=== PATIENT | female | born 2000 | race Caucasian/White ===

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

== ENCOUNTER 2019-08-19 16:26 | Emergency (ER) | payer SELFPAY | END 2019-08-19 17:53 | disposition home or self-care (01) | LOC: ERS 16:26 | DX: O99.511 Diseases of the respiratory system complicating pregnancy, first trimester (principal); J06.9 Acute upper respiratory infection, unspecified; Z3A.01 Less than 8 weeks gestation of pregnancy | CPT/HCPCS: 87804; 99283 ==

== ENCOUNTER 2019-08-20 08:03 | Emergency (ER) | payer SELFPAY | END 2019-08-20 08:24 | disposition home or self-care (01) | LOC: ERS 08:03 | DX: H66.91 Otitis media, unspecified, right ear (principal) | CPT/HCPCS: 99282 ==

== ENCOUNTER 2020-04-07 08:28 | Outpatient (CLI) | payer OTHER ==
[2020-04-07 17:22] LABS: SARS-CoV-2 MS2 Positive; SARS-CoV-2 N Gene Negative; SARS-CoV-2 S Gene Negative; SARS-CoV-2 by NAA Not Detected (NotDetected); SARS-CoV-2 orf1ab Negative
== END 2020-04-07 08:29 | disposition home or self-care (01) ==
LOC: LABBT 08:28
PROVIDERS: ATTEND Family Medicine
DX: Z20.828 Contact with and (suspected) exposure to other viral communicable diseases (principal)
CPT/HCPCS: 87635; U0003

== ENCOUNTER 2020-04-10 05:30 | Inpatient (IN) | payer MEDICAID, OTHER ==
[2020-04-10 07:18] VITALS: BMI 29.1
[2020-04-10] MEDS ORDERED: HYDROcodone/Acetaminophen 5/325 mg Tablet PO PRN ×2 (07:18→21:18)
[2020-04-10] MEDS ORDERED: Penicillin G Potassium 5 MILL.UNITS in Sodium Chloride 0.9% 100 ML IVPB SCH (07:18)
[2020-04-10] MEDS ORDERED: Diphenoxylate HCl/Atropine Tablet PO PRN (07:18)
[2020-04-10] MEDS ORDERED: Carboprost 250 MCG/ML AMP IM PRN (07:18)
[2020-04-10] MEDS ORDERED: Ibuprofen 800 MG TAB PO PRN (07:18)
[2020-04-10] MEDS ORDERED: NS / Oxytocin 40 units/1000ml 1,000 ML IV PRN (07:18)
[2020-04-10] MEDS ORDERED: Promethazine HCl 25 MG/ML VIAL IM PRN ×3 (07:18→21:18)
[2020-04-10] MEDS ORDERED: hydrALAZINE 20 MG/ML VIAL SLOW IVP PRN ×2 (07:18→21:18)
[2020-04-10] MEDS ORDERED: Ondansetron PF 4 MG/2 ML Vial IVP PRN ×3 (07:18→21:18)
[2020-04-10] MEDS ORDERED: Lidocaine 1% (PF) 30 ML VIAL SC PRN (07:18)
[2020-04-10] MEDS ORDERED: NS w/ Oxytocin 10 units 500 ML IV SCH ×2 (07:18)
[2020-04-10] MEDS ORDERED: Misoprostol 200 MCG TAB PR PRN (07:18)
[2020-04-10] MEDS ORDERED: Methylergonovine 0.2 MG/ML VIAL IM PRN (07:18)
[2020-04-10] MEDS ORDERED: Butorphanol Tartrate 1 MG/ML VIAL SLOW IVP PRN (07:18)
[2020-04-10 07:54] LABS: Mean Corpuscular HGB CONC 32.8 g/dL (32.0-36.0); Mean Corpuscular Hemoglobin 26.2 pg (27.0-31.0); Mean Platelet Volume 9.7 fL (7.4-10.4); Platelet Count 156 thou/uL (130-400); RBC Distribution Width 15.7 % (11.5-14.5); Red Blood Cell (RBC) Count 3.45 mill/uL (4.20-5.40); White Blood Cell (WBC) Count 5.3 thou/uL (4.8-10.8)
[2020-04-10 08:41] LABS: HBSAg Index 0.16 S/CO (0-0.99); Hep B Surf Ag Non-Reactive S/CO (NonReactive)
[2020-04-10 08:42] LABS: Syphilis Antibody Nonreactive (Nonreactive); Syphilis Antibody Index 0.04 S/CO (<1.00 Non-Reactive)
[2020-04-10] MEDS ORDERED: EPHEDRINE 25 MG/5 ML SYRINGE ONE (08:51)
[2020-04-10] MEDS ORDERED: Bupivacaine 0.25% HCL 30 ML VIAL ONE (08:51)
[2020-04-10] MEDS ORDERED: Fentanyl 4 mcg/Bup 0.1% Cadd 100 ML ONE (10:54)
[2020-04-10] MEDS: Penicillin G 2.5 MILL.units 2.5 MILL.UNITS in Premix Bag 1 BAG IVPB SCH ×2 (12:02→22:40)
[2020-04-10] MEDS ORDERED: EPHEDRINE 25 MG/5 ML SYRINGE SLOW IVP PRN (15:41)
[2020-04-10] MEDS ORDERED: Lactated Ringer's 500 ML IV PRN (15:41)
[2020-04-10] MEDS ORDERED: Acetaminophen 325 MG TAB PO PRN (15:41)
[2020-04-10] MEDS ORDERED: diphenhydrAMINE 50 MG/ML VIAL IVP PRN (15:41)
[2020-04-10] MEDS ORDERED: Naloxone HCl 0.4 mg/ml Vial IVP PRN ×2 (15:41)
[2020-04-10] MEDS ORDERED: Communication Order-Pharmacy FS SCH (15:45)
[2020-04-10] MEDS ORDERED: Fentanyl 4 mcg/Bupivacaine 0.1% Cassette 100 ML EPIDURAL SCH (15:45)
[2020-04-10] MEDS ORDERED: Lidocaine 1% (PF) 30 ML VIAL ONE (17:36)
[2020-04-10] MEDS ORDERED: NS / Oxytocin 40 units/1000ml 1,000 ML ONE (17:36)
[2020-04-10 18:18] LABS: Actual Bicarbonate (HCO3v) 18 mEq/L (22-28); Base Excess -10.6 mEq/L (-2.0 to +3.0)
[2020-04-10 18:19] LABS: pH (Cord, venous) 7.18 (7.32-7.43)
[2020-04-10] MEDS: Lactated Ringer's 1,000 ML IV SCH ×2 (19:48→22:40)
[2020-04-10] MEDS ORDERED: NS / Oxytocin 40 units/1000ml 1,000 ML IV SCH (21:18)
[2020-04-10] MEDS ORDERED: diphenhydrAMINE 25 MG CAP PO PRN (21:18)
[2020-04-10] MEDS ORDERED: Milk Of Magnesia 30 ML UDCUP PO PRN (21:18)
[2020-04-10] MEDS ORDERED: Lanolin Ointment 7 GM TUBE TOP PRN (21:18)
[2020-04-10] MEDS ORDERED: Bisacodyl 10 MG SUPP PR PRN (21:18)
[2020-04-10] MEDS ORDERED: Benzocaine-Menthol 82.5 ML CAN TOP PRN (21:18)
[2020-04-10] MEDS ORDERED: Docusate Calcium (SURFAK) 240 MG CAP PO SCH (21:30)
[2020-04-11] MEDS: HYDROcodone/Acetaminophen 5/325 mg Tablet PO PRN ×2 (03:12→13:51)
[2020-04-11 06:22] LABS: Mean Corpuscular HGB CONC 33.8 g/dL (32.0-36.0); Mean Corpuscular Hemoglobin 26.7 pg (27.0-31.0); Mean Corpuscular Volume 78.9 fL (78.0-98.0); Mean Platelet Volume 9.9 fL (7.4-10.4); Platelet Count 124 thou/uL (130-400); RBC Distribution Width 15.6 % (11.5-14.5); Red Blood Cell (RBC) Count 2.99 mill/uL (4.20-5.40); White Blood Cell (WBC) Count 6.7 thou/uL (4.8-10.8)
[2020-04-11] MEDS ORDERED: Adacel (T-DAP) 0.5 ML SYRINGE IM ONE (09:00)
[2020-04-11] MEDS: Prenatal Vitamin 1 TAB PO SCH (09:12)
[2020-04-11] MEDS: Docusate Calcium (SURFAK) 240 MG CAP PO SCH ×2 (09:12→20:56)
[2020-04-11] MEDS: Ferrous Sulfate 325 MG TAB PO SCH ×2 (09:12→18:45)
[2020-04-11] MEDS: Ibuprofen 800 MG TAB PO SCH (20:56)
[2020-04-12] MEDS: Ibuprofen 800 MG TAB PO SCH ×2 (05:54→14:29)
[2020-04-12 08:21] VITALS: BP 109/65; TEMP 98.7
[2020-04-12] MEDS: Ferrous Sulfate 325 MG TAB PO SCH (08:28)
[2020-04-12] MEDS: Prenatal Vitamin 1 TAB PO SCH (08:28)
[2020-04-12] MEDS: Docusate Calcium (SURFAK) 240 MG CAP PO SCH (08:29)
[2020-04-12] MEDS ORDERED: Adacel (T-DAP) 0.5 ML SYRINGE IM ONE (15:30)
[2020-04-12] MEDS ORDERED: Boostrix 0.5 ML VIAL IM ONE (15:45)
--- NOTE | 2020-04-13 14:38 | DIS ---
DATE OF ADMISSION: 04/10/2020 DATE OF DISCHARGE: 04/12/2020 PRINCIPAL DIAGNOSES: 1. Nonreassuring heart tones. 2. Vacuum-assisted vaginal delivery. BRIEF HISTORY: This is a 19-year-old female, G3, P2, who presented for oxytocin induction of labor on 04/10. The date of the hospital stay should be 04/10/2020 to 04/12/2020. PROCEDURE: Ultrasound. INTRAPARTUM PROCEDURE: Vacuum-assisted vaginal delivery. PROCEDURES: None. OPERATIVE OR COMPLICATIONS: None. DISCHARGE INSTRUCTIONS: Activity is as tolerated. Diet regular. Medications, [place], ibuprofen, Ferralet 90. ROUTINE INSTRUCTIONS: Discharge home. Follow up in 6 weeks at [facility]. Job ID: [id number]
== END 2020-04-12 16:00 | disposition home or self-care (01) | DRG 807 ==
LOC: L&D 06:39 → 3SW 22:12
PROVIDERS: ADMIT Family Medicine; ATTEND Family Medicine
PROC: 10D07Z6 Extraction of Products of Conception, Vacuum, Via Natural or Artificial Opening (ICD-10-PCS; principal; 2020-04-10)
PROC: 10907ZC Drainage of Amniotic Fluid, Therapeutic from Products of Conception, Via Natural or Artificial Opening (ICD-10-PCS; 2020-04-10)
PROC: 0HQ9XZZ Repair Perineum Skin, External Approach (ICD-10-PCS; 2020-04-10)
DX: O69.81X0 Labor and delivery complicated by cord around neck, without compression, not applicable or unspecified (principal); Z37.0 Single live birth; O99.824 Streptococcus B carrier state complicating childbirth; O70.0 First degree perineal laceration during delivery; Z3A.39 39 weeks gestation of pregnancy; Z20.828 Contact with and (suspected) exposure to other viral communicable diseases
CPT/HCPCS: 36415; 82805; 85027; 86780; 86850; 86900; 86901; 87340; 87635; 90715; J2001; J2540; J2590; J3490; S0020; U0003

== ENCOUNTER 2023-02-18 14:54 | Emergency (ER) | payer SELFPAY ==
[2023-02-18 16:03] LABS: #Eosinphils 0.5 thou/uL (0.0-0.7); #Monocytes 0.5 thou/uL (0.11-0.59); #Neutrophils 2.4 thou/uL (1.40-6.50); %Basophils 0.5 % (0.0-1.0); %Eosinophils 8.2 % (0.0-10.0); %Lymphocytes 39.5 % (21.0-51.0); %Monocytes 8.4 % (0.0-10.0); %Neutrophils 43.2 % (42.0-75.0); Hematocrit 40.1 % (36.0-47.0); Hemoglobin 13.8 g/dL (12.0-16.0); Mean Corpuscular HGB CONC 34.4 g/dL (32.0-36.0); Mean Corpuscular Hemoglobin 31.7 pg (27.0-31.0); Mean Corpuscular Volume 92.2 fl (78.0-98.0); Mean Platelet Volume 11.3 fL (7.4-10.4); Platelet Count 214 10x3/uL (130-400); RBC Distribution Width 11.9 % (11.5-14.5); Red Blood Cell (RBC) Count 4.35 mill/uL (4.20-5.40); White Blood Cell (WBC) Count 5.5 10x3/uL (4.8-10.8)
[2023-02-18 16:29] LABS: ALT (SGPT) 11 U/L (8-55); AST (SGOT) 15 U/L (5-34); Albumin 4.1 g/dL (3.5-5.0); Alkaline Phosphatase 54 U/L (40-110); Anion Gap 14 mmol/L (10-20); BUN (Urea Nitrogen) 7 mg/dL (7.0-18.7); Bilirubin, Total 0.5 mg/dL (0.2-1.2); Calc. Creatinine Clearance 0 mL/min (70-130); Calcium 9.3 mg/dL (7.8-10.44); Carbon Dioxide 22 mmol/L (22-29); Chloride 107 mmol/L (98-107); Estimated GFR 116; Glucose 92 mg/dL (70-105); Potassium 4.1 mmol/L (3.5-5.1); Protein, Total 7.1 g/dL (6.0-8.3); Sodium 139 mmol/L (136-145)
[2023-02-18 16:33] LABS: Troponin I Less than 0.010 ng/mL (< 0.028)
[2023-02-18 17:09] LABS: BHCG - Serum Negative (NEGATIVE); Pregs Control Background? CLEAR/WHITE (CLR/WHITE); Pregs Control Bar Appear? YES (CONTROL BAR)
== END 2023-02-18 17:31 | disposition home or self-care (01) ==
LOC: ERS 14:54
DX: R07.9 Chest pain, unspecified (principal); R05.9 Cough, unspecified
CPT/HCPCS: 36415; 71045; 80053; 84484; 84703; 85025; 93005